=== PATIENT | male | born 1995 | race Two or more races ===

== ENCOUNTER 2018-01-23 10:16 | Emergency (ER) | payer BC ==
[~2018-01-23] VITALS: Ht 170.2 cm; Wt 81.6 kg
[2018-01-23] MEDS ORDERED: IBUPROFEN600 MG ORAL (11:10)
[2018-01-23] MEDS ORDERED: CYCLOBENZAPRINE10 MG ORAL (11:10)
[2018-01-23 11:15] VITALS: BP 126/89
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
== END 2018-01-23 11:15 | disposition home or self-care (01) ==
LOC: EMR 11:05
DX: S16.1XXA Strain of muscle, fascia and tendon at neck level, initial encounter (principal); V43.52XA Car driver injured in collision with other type car in traffic accident, initial encounter; Y92.410 Unspecified street and highway as the place of occurrence of the external cause
CPT/HCPCS: 99282